=== PATIENT | female | born 1960 | race Caucasian/White ===

== ENCOUNTER 2016-07-24 12:40 | Inpatient (IN) | payer OTHER ==
--- NOTE | ~2016-07-24 | CN ---
Consultation Report [place] [id number] [place]. [address] NAME: MONICA CHAUHAN : 62 STATUS : ADM IN PAT#: [id number] AGE: 55 ADM/REG DATE : 07/24/16 MR#: [id number] REPORT SERV DATE: 07/26/16 DICTATED BY: Katlyn CAMP DATE: 07/26/16 REPORT STATUS : Draft TRANSCRIBED BY: MODL DATE: 07/26/16 DATE OF CONSULTATION: 07/25/2016 CHIEF COMPLAINT: Febrile urinary tract infection with history of stone disease. HISTORY OF PRESENT ILLNESS: Ms. Chauhan is a 55-year-old white female known to me with a history of recurrent stone disease. She had multiple procedures, some done here, some done when she lived in [place]. She presented to the emergency room on 07/24/2016 with fever, chills, right flank pain, and lower abdominal pain. A CT showed a large nonobstructing lower pole right renal pelvis stones with another moderate stone in the lower pole calyx with a small gas bubble in the right renal pelvis and upper pole. There was no evidence of obstruction, and the patient has been hemodynamically stable since admission. Her pain has largely resolved. I last saw her in April of this year to monitor her stone burden which was stable. PAST MEDICAL HISTORY: 1. Borderline hypertension. 2. Urolithiasis with multiple procedures. 3. History of sepsis due to obstructing stone. 4. COPD. 5. GERD. PAST SURGICAL HISTORY: 1. Remote right PCNL tube. 2. Previous ESWL. 3. 02/07/2015, cysto, stent placement. 4. 02/13/2015, right ESWL. 5. Appendectomy. 6. Hysterectomy. HOME MEDICATIONS: Prilosec 20 mg daily. ALLERGIES: NO KNOWN DRUG ALLERGIES. SOCIAL HISTORY: She is a [id number] smoker. Denies current alcohol use. FAMILY HISTORY: Negative for urologic disease. REVIEW OF SYSTEMS: Full 12-point review of systems negative except as noted above. PHYSICAL EXAMINATION: GENERAL: Obese 55-year-old white female, afebrile currently with normal vital signs. Alert and oriented x3. HEENT: Normocephalic, atraumatic. Consultation Report [id number] [place]. [address] NAME: MONICA CHAUHAN : 62 STATUS : ADM IN PAT#: [id number] AGE: 55 ADM/REG DATE : 07/24/16 MR#: [id number] REPORT SERV DATE: 07/26/16 DICTATED BY: Katlyn CMAP DATE: 07/26/16 REPORT STATUS : Draft TRANSCRIBED BY: JIMY DATE: 07/26/16 CHEST: Clear with some mild wheezing. ABDOMEN: Protuberant, nontender, nondistended. BACK: No CVA tenderness noted. EXTREMITIES: No peripheral edema noted. The patient is ambulatory. PERTINENT LABORATORY: Creatinine 1.17. White count 12,500. Urinalysis; inflammatory with culture pending. CT of the abdomen and pelvis was reviewed and as noted above. IMPRESSION: 1. Febrile urinary tract infection; probable pyelonephritis. 2. History of urolithiasis with nonobstructing right renal stones. 3. Right flank pain, resolved. 4. Other medical problems including chronic obstructive pulmonary disease. PLAN: 1. The gas in her collecting system is most likely due to the organism involved. I would not make much of that as she does not appear obstructed. 2. I do think that if indeed this is a problem on that side, the stones could be infected and ultimately she is going to need treatment of them. My first offer was percutaneous nephrolithotomy. She had a bad experience with [place] and is averse to that. Second choice would be inferior, which would include a right ESWL with or without a stent, although she has failed ESWL in the past as well. The next option would be observation to see if she has recurrence of this whenever bug is found during this admission and I think that as probably the least hernandez decision, but we do not have to make that decision at this time and as there was no need for urgent intervention, I will follow with her during this hospitalization. CINDA/JIMY Katlyn Camp M.D. / [id number] CC: Joaquin Sutherland MD
--- NOTE | ~2016-07-24 | HP ---
History And Physical [place] [address] [facility] [place]. [address] NAME: MONICA CRAWFORD : 62 STATUS : ADM IN [facility]#: [id number] AGE: 55 ADM/REG DATE : 07/24/16 MR#: [id number] REPORT SERV DATE: 07/24/16 DICTATED BY: LELO KIDD DATE: 07/24/16 REPORT STATUS : Draft TRANSCRIBED BY: MODL DATE: 07/24/16 DATE OF ADMISSION: 07/24/2016 HISTORY OF PRESENT ILLNESS: The patient is a 55-year-old female who presented to [facility] because of sensation of fever, chills, complaining of right-sided flank pain, pain in the lower abdomen, sensation of itching, nausea this morning, tried to vomit, but could not vomit anything. She denies dysuria. No chest pain. No shortness of breath. She has mild cough. She is a smoker. No headaches. Also, complaining of weakness. All 14-point review of systems done and negative except what is stated in the history of present illness. PAST MEDICAL HISTORY: Known for borderline hypertension; history of multiple kidney stones with obstructive uropathy and multiple surgeries; history of severe sepsis in 2015, for E coli; history of allergic reaction of unknown cause possibly secondary to ibuprofen according to discharge summary of Dr. Lou in 2014; history of COPD and hypoxemia; history of acute kidney injury; history of cystoscopy with right retrograde pyelography, stone manipulation, placement of right double-J stent by Dr. Velasco; history of recurrent nephrolithiasis; multiple cystoscopies for kidney stones; history of tube placement in the past; other surgical problems include x3; abdominal hysterectomy; and appendectomy. ALLERGIES: THERE ARE NO KNOWN DRUG ALLERGIES, BUT THERE IS A QUESTIONABLE REACTION TO IBUPROFEN. SOCIAL HISTORY: She smokes one pack per day. No alcohol. No recreational drug use. 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 is at the bedside. HOME MEDICATIONS: She only takes stomach medicine, omeprazole 20 mg twice a day. FAMILY HISTORY: Mother healthy, is living. Father from colon cancer. The patient denies any history of strokes. No heart attacks. No diabetes. No thyroid problems. PHYSICAL EXAMINATION: GENERAL: Overweight female not in acute distress, weak, complaining of right flank pain. VITAL SIGNS: Blood pressure 122/69, temperature 98.3, heart rate 100, and then improved to 93, respiratory rate 18, and oxygen saturation 95 on room air. HEENT: Head atraumatic, normocephalic. Conjunctivae clear. Pupils are equal and reactive to light and accommodation. Extraocular muscles are intact. NECK: Supple. Trachea is midline. No supraclavicular or cervical lymphadenopathy. LUNGS: Diminished breath sounds bilaterally with mild wheezing. Normal respiratory effort. CARDIOVASCULAR: Regular rate and rhythm. Point of maximal impulse not displaced. ABDOMEN: Soft. There is tenderness to palpation in the right flank anteriorly and posteriorly. There is no tenderness in other abdominal quadrants. There is no guarding. No rebound. Completely benign abdominal examination. History And Physical [address] [address] NAME: MONICA CRAWFORD : 62 STATUS : ADM IN [facility]#: [id number] AGE: 55 ADM/REG DATE : 07/24/16 MR#: [id number] REPORT SERV DATE: 07/24/16 DICTATED BY: LELO KIDD DATE: 07/24/16 REPORT STATUS : Draft TRANSCRIBED BY: JIMY DATE: 07/24/16 EXTREMITIES: No clubbing, cyanosis, or edema. SKIN: Normal color, slightly decreased turgor. PSYCHIATRIC: Normal mood and affect. NEUROLOGIC: Awake, alert, and oriented in time, place, and person. Muscle strength is 5/5 bilaterally on upper and lower extremities. LABORATORY RESULTS: Sodium 140, potassium 4, chloride 106, carbon dioxide 24, BUN 10, creatinine 1.17, blood sugar 110. ALT 19, AST 19, lipase 71. White count 12.5, hemoglobin 15, hematocrit 42.8, and a platelet count is 241. Urinalysis showed hazy urine with moderate leukocyte esterase, positive nitrites, 5 red blood cells, and [address] of the abdomen and pelvis without contrast done in the emergency room today showed large nonobstructing lower right renal pelvis calculus and moderate size nonobstructing calculus, lower pole calyx, right kidney, no right ureter calculus, small bubble of gas in the right renal pelvis and upper pole calyx. This may represent sequela of recent instrumentation versus possibility of gas-forming infection correlation with clinical history needed. Infiltration of right perirenal fat planes may represent sequela of underlying infection such as pyelonephritis or may represent sequela of recently resolved obstruction. Cholelithiasis. No acute cholecystitis pattern, status post appendectomy, hysterectomy, small 11 mm left adrenal adenoma. Chest x-ray is ordered and currently pending. ASSESSMENT AND PLAN: This is a very pleasant 55-year-old female who presented with right- sided pyelonephritis and history of multiple kidney stones, history of pyelonephritis in the past, history of Escherichia coli urinary tract infection sepsis presented again with: 1. Right-sided pyelonephritis. 2. Kidney stones. 3. Right flank pain secondary to above. 4. History of chronic obstructive pulmonary disease with ongoing tobacco abuse. For her right-sided pyelonephritis, the patient reported that in April, she saw Dr. Velasco, her urologist, and at that time, she was okay, but she sees him every six months and I think this is another episode of pyelonephritis. We will start the patient on IV fluid hydration as well as we will start the patient on antibiotics. I checked her last urinary culture on 05/03/2016. She had urine culture which showed E coli ESBL which was resistant to quinolones, but sensitive to meropenem. We will start the patient on meropenem waiting until urinary cultures come back which were taken at this time. In the same time, we will ask pharmacy to help with the dosing. The patient's creatinine 1.17 at her baseline. In February 2015, it was the same number 1.17 and her GFR is 61. She probably has stage 2 chronic kidney disease as well. We will continue IV fluid hydration. We will give reasonable pain control and nausea control. For her COPD, we will check her chest x-ray and give her albuterol, ipratropium breathing treatment. The patient was told that she needs to stop smoking and also she was told to avoid nonsteroidal anti-inflammatories. My colleague, Dr. Dennison, will see this patient starting tomorrow morning as well as Dr. eVlasco was consulted. Noble in the emergency room spoke with Dr. Velasco's partner Dr. Baldwin and he said that they will see her in consultation. History And Physical [address] [place]. [address] NAME: MONICA CRAWFORDETTE : 62 STATUS : ADM IN PAT#: [id number] AGE: 55 ADM/REG DATE : 07/24/16 MR#: [id number] REPORT SERV DATE: 07/24/16 DICTATED BY: LELO KIDD DATE: 07/24/16 REPORT STATUS : Draft TRANSCRIBED BY: JIMY DATE: 07/24/16 We will also keep the patient n.p.o. after midnight in case if they will need to do any instrumentation on her. MG/MODL Lelo Kidd M.D. / [id number] CC: MD Katlyn Lira M.D.
--- NOTE | ~2016-07-24 | DS ---
Discharge Summary [facility] [address] [facility] [place]. [address] NAME: MONICA CRAWFORD : 62 STATUS : DIS IN PAT#: [id number] AGE: 55 ADM/REG DATE : 07/24/16 MR#: [id number] REPORT SERV DATE: 07/31/16 DICTATED BY: JEFF CROFT DATE: 07/30/16 REPORT STATUS : Draft TRANSCRIBED BY: MODL DATE: 07/30/16 ADMISSION DATE: 07/24/2016 DISCHARGE DATE: 07/30/2016 HISTORY OF PRESENT ILLNESS: The patient is a 55-year-old female with a history of hypertension who presented to the hospital with a complaint of flank pain and intermittent fevers and chills. For further details, please refer to H and P dictated by Dr. Beatty on 07/24/2016. HOSPITAL COURSE: Upon presenting to the hospital, the patient was diagnosed with pyelonephritis and admitted under Hospitalist Service. Preliminary workup included a CT abdomen and pelvis which noted a large nonobstructive lower right renal pelvis calculus. Given this finding, the patient was admitted on the Hospitalist Service. She was started on empiric antibiotic therapy and Urology was consulted. Per Urology's evaluation, given that was nonobstructing, there was no indication for urgent intervention, with the plan was for patient to follow up with Urology in the outpatient setting. Also, on presentation, the urine culture was obtained during her hospital course. Her urine culture came back positive for ESBL E. coli. The patient was placed on meropenem for antibiotic coverage. Her symptoms quickly resolved. However, given that her antibiotics was only sensitive to meropenem and resistant to other p.o. antibiotics, the patient was kept in-house for IV antibiotic therapy, given that for logistical reasons, home antibiotic therapy could not be set up for the patient. The patient has completed today a 7-day course of meropenem, and given a seven-day course of meropenem, she has remained hemodynamically stable with a complete resolution of her symptoms. Her, with normal kidney function, she is eagerly wanting to go home. Given completion of workup, the patient will be discharged to home to follow up with Urology. Plan has been discussed with the patient, who voices understanding and is agreeable with this plan. DISCHARGE DIAGNOSES: 1. Pyelonephritis. 2. Nephrolithiasis. 3. Chronic obstructive pulmonary disease. 4. Hypokalemia. 5. Acute kidney injury. 6. Obesity. 7. Hypertension. DISCHARGE MEDICATIONS: 1. Amlodipine 5 mg p.o. daily. 2. Omeprazole 20 mg p.o. daily. IMAGING: CT abdomen and pelvis without contrast. Impression: 1. Large nonobstructing lower right renal pelvis calculus and moderate-sized nonobstructing calculus, lower pole calyx right kidney, no right ureter calculus. 2. Small bubble of gas in the right renal pelvis and upper pole calyx. This may represent sequela of recent instrumentation versus possibility of gas-forming infection, Discharge Summary [address] [address] NAME: MONICA CRAWFORD : 62 STATUS : DIS IN [facility]#: [id number] AGE: 55 ADM/REG DATE : 07/24/16 MR#: [id number] REPORT SERV DATE: 07/31/16 DICTATED BY: JEFF CROFT DATE: 07/30/16 REPORT STATUS : Draft TRANSCRIBED BY: JIMY DATE: 07/30/16 correlate with clinical history needed. 3. Infiltration of right perirenal fat planes, may represent sequela of underlying infection such as pyelonephritis or may represent sequela of recently resolved obstruction. 4. Cholelithiasis. No acute cholecystitis. 5. Status post appendectomy and hysterectomy. 6. Small 11 mm left adrenal adenoma. DISPOSITION: The patient will be discharged to home. ACTIVITY: As tolerated. DIET: Low-salt diet. Greater than 30 minutes was spent providing counseling, dictation of note, medication reconciliation, and coordinating discharge. DICTATED BY: MD ARIEL Falk/JIMY Jeff Croft MD / [id number] CC: Jeff Croft MD
[2016-07-24 10:23] LABS: ASCORBIC ACID (UR NOT ORDER) NEG (NEG); BILIRUBIN, URINE NEGATIVE (NEG); ER URINALYSIS TAT 0 Hrs 00 Mins; KETONE, URINE NEGATIVE (NEG); LEUKOCYTE ESTERASE(NOT OR MOD (NEG); WBC (NOT ORDERED) (RFLEX) 49 (0-5)
[2016-07-24 10:23] LABS: BASOPHILS 0.1 %; BASOPHILS ABSOLUTE 0.01 10/3/uL (0.0-0.16); EOSINOPHILS 0 %; HEMATOCRIT 42.8 % (36.0-48.0); IMMATURE GRANULOCYTES 0.2 %; IMMATURE GRANULOCYTES ABSOLUTE 0.03 10/3/uL (0.0-0.11); LYMPHOCYTES 10.2 %; LYMPHOCYTES ABSOLUTE 1.27 10/3/uL (0.67-4.30); MANUAL DIFF NO %; MEAN CORPUSCULAR HEMOGLOB 29.9 pg (26.0-34.0); MEAN CORPUSCULAR VOLUME 85.3 fL (80-100); MEAN PLATELET VOLUME 10.6 fL (9.2-13.0); MONOCYTES ABSOLUTE 0.88 10/3/uL (0.21-1.20); NEUTROPHILS 82.5 %; NEUTROPHILS ABSOLUTE 10.31 10/3/uL (2.02-8.40); PLATELET COUNT 241 10/3/uL (150-400); RBC DISTRIBUTION WIDTH 14.2 % (12.0-16.0); RED CELL COUNT 5.02 10/6/uL (4.0-5.6); WHITE BLOOD CELLS 12.5 10/3/uL (4.5-10.5)
[2016-07-24 10:24] LABS: NITRITE (URINE) POS (NEG)
[2016-07-24 10:38] LABS: A/G RATIO 0.8 (0.7-1.9); ALBUMIN 3.5 G/DL (3.5-5.0); ALKALINE PHOSPHATASE 89 U/L (45-117); BUN (BLOOD UREA NITROGEN) 10 MG/DL (6-23); CALCIUM, SERUM 9.3 MG/DL (8.5-10.4); CHLORIDE, SERUM 106 MMOL/L (96-112); CO2 (CARBON DIOXIDE) 24 MMOL/L (24-34); CREATININE 1.17 MG/DL (0.55-1.02); GFR AFRICAN AMERICAN 61 ML/MIN (>=60); GFR NON AFRICAN AMERICAN 53 ML/MIN (>=60); GLOBULIN 4.2 G/DL (2.5-4.1); GLUCOSE, SERUM 110 MG/DL (60-99); SGOT(AST) 19 U/L (5-40); SGPT(ALT) 19 U/L (5-65); SODIUM, SERUM 140 MMOL/L (135-148); TOTAL BILIRUBIN 0.5 MG/DL (0-1.2); TOTAL PROTEIN 7.7 G/DL (6.0-8.5)
[~2016-07-24 12:40] MED LIST: BEN25 PO; DENIES HOME MEDS; HABIT21 TOP; P10 PO; PRILOSEC OTC20 MG PO; PROAIR HFA; SEPTRA1 TAB PO
[2016-07-24 17:55] LABS: INTERNATIONAL NORMAL RATI 1.2 UNITS (-); PARTIAL THROMBO TIME 41.5 SEC (22.5-37.2); PROTIME (NOT ORD) 14.8 SEC (12.0-14.5)
[2016-07-25 05:57] LABS: BASOPHILS 0 %; EOSINOPHILS 0.1 %; EOSINOPHILS ABSOLUTE 0.01 10/3/uL (0.0-0.53); HEMATOCRIT 40.3 % (36.0-48.0); HEMOGLOBIN 13.6 g/dL (12.0-16.0); IMMATURE GRANULOCYTES 0.1 %; IMMATURE GRANULOCYTES ABSOLUTE 0.01 10/3/uL (0.0-0.11); LYMPHOCYTES 11.7 %; MANUAL DIFF NO %; MEAN CORPUS HGB CONC 33.7 g/dL (32.0-36.0); MEAN CORPUSCULAR HEMOGLOB 29.8 pg (26.0-34.0); MEAN CORPUSCULAR VOLUME 88.2 fL (80-100); MEAN PLATELET VOLUME 10.7 fL (9.2-13.0); MONOCYTES 4.3 %; MONOCYTES ABSOLUTE 0.33 10/3/uL (0.21-1.20); NEUTROPHILS 83.8 %; NEUTROPHILS ABSOLUTE 6.47 10/3/uL (2.02-8.40); PLATELET COUNT 219 10/3/uL (150-400); RBC DISTRIBUTION WIDTH 14.4 % (12.0-16.0); RED CELL COUNT 4.57 10/6/uL (4.0-5.6); WHITE BLOOD CELLS 7.7 10/3/uL (4.5-10.5)
[2016-07-25 06:13] LABS: CALCIUM, SERUM 8.7 MG/DL (8.5-10.4); CHLORIDE, SERUM 109 MMOL/L (96-112); CO2 (CARBON DIOXIDE) 25 MMOL/L (24-34); CREATININE 1.23 MG/DL (0.55-1.02); GFR AFRICAN AMERICAN 58 ML/MIN (>=60); GFR NON AFRICAN AMERICAN 50 ML/MIN (>=60); GLUCOSE, SERUM 107 MG/DL (60-99); POTASSIUM, SERUM 3.9 MMOL/L (3.5-5.3); SODIUM, SERUM 140 MMOL/L (135-148)
[2016-07-25 06:14] LABS: BUN (BLOOD UREA NITROGEN) 15 MG/DL (6-23)
[2016-07-27 05:27] LABS: BASOPHILS 0.3 %; BASOPHILS ABSOLUTE 0.01 10/3/uL (0.0-0.16); EOSINOPHILS 1.9 %; EOSINOPHILS ABSOLUTE 0.07 10/3/uL (0.0-0.53); HEMATOCRIT 36.7 % (36.0-48.0); HEMOGLOBIN 12.4 g/dL (12.0-16.0); LYMPHOCYTES 31.9 %; LYMPHOCYTES ABSOLUTE 1.19 10/3/uL (0.67-4.30); MEAN CORPUS HGB CONC 33.8 g/dL (32.0-36.0); MEAN CORPUSCULAR VOLUME 85.7 fL (80-100); MEAN PLATELET VOLUME 10.2 fL (9.2-13.0); MONOCYTES 11.3 %; MONOCYTES ABSOLUTE 0.42 10/3/uL (0.21-1.20); NEUTROPHILS 54.6 %; NEUTROPHILS ABSOLUTE 2.04 10/3/uL (2.02-8.40); PLATELET COUNT 208 10/3/uL (150-400); RBC DISTRIBUTION WIDTH 14.2 % (12.0-16.0); RED CELL COUNT 4.28 10/6/uL (4.0-5.6)
[2016-07-27 05:28] LABS: MANUAL DIFF NO %; WHITE BLOOD CELLS 3.7 10/3/uL (4.5-10.5)
[2016-07-27 05:54] LABS: CALCIUM, SERUM 8.6 MG/DL (8.5-10.4); CHLORIDE, SERUM 108 MMOL/L (96-112); CO2 (CARBON DIOXIDE) 25 MMOL/L (24-34); GLUCOSE, SERUM 100 MG/DL (60-99); POTASSIUM, SERUM 3.4 MMOL/L (3.5-5.3); SGOT(AST) 18 U/L (5-40); SGPT(ALT) 18 U/L (5-65); SODIUM, SERUM 140 MMOL/L (135-148); TOTAL BILIRUBIN 0.2 MG/DL (0-1.2); TOTAL PROTEIN 6.4 G/DL (6.0-8.5)
[2016-07-27 05:56] LABS: A/G RATIO 0.7 (0.7-1.9); ALBUMIN 2.6 G/DL (3.5-5.0); ALKALINE PHOSPHATASE 58 U/L (45-117); BUN (BLOOD UREA NITROGEN) 9 MG/DL (6-23); CREATININE 0.73 MG/DL (0.55-1.02); GFR AFRICAN AMERICAN 108 ML/MIN (>=60); GFR NON AFRICAN AMERICAN 93 ML/MIN (>=60); GLOBULIN 3.8 G/DL (2.5-4.1)
[2016-07-28 06:25] LABS: HEMATOCRIT 37.1 % (36.0-48.0); HEMOGLOBIN 12.6 g/dL (12.0-16.0); MEAN CORPUSCULAR VOLUME 85.5 fL (80-100); MEAN PLATELET VOLUME 10.5 fL (9.2-13.0); PLATELET COUNT 251 10/3/uL (150-400); RBC DISTRIBUTION WIDTH 13.9 % (12.0-16.0); RED CELL COUNT 4.34 10/6/uL (4.0-5.6); WHITE BLOOD CELLS 3.5 10/3/uL (4.5-10.5)
[2016-07-28 06:26] LABS: MANUAL DIFF YES %
[2016-07-28 06:44] LABS: A/G RATIO 0.7 (0.7-1.9); ALBUMIN 2.6 G/DL (3.5-5.0); ALKALINE PHOSPHATASE 60 U/L (45-117); BUN (BLOOD UREA NITROGEN) 11 MG/DL (6-23); CALCIUM, SERUM 8.9 MG/DL (8.5-10.4); CHLORIDE, SERUM 109 MMOL/L (96-112); CO2 (CARBON DIOXIDE) 23 MMOL/L (24-34); CREATININE 0.72 MG/DL (0.55-1.02); GFR AFRICAN AMERICAN 110 ML/MIN (>=60); GFR NON AFRICAN AMERICAN 95 ML/MIN (>=60); GLOBULIN 3.8 G/DL (2.5-4.1); GLUCOSE, SERUM 104 MG/DL (60-99); POTASSIUM, SERUM 3.5 MMOL/L (3.5-5.3); SGOT(AST) 19 U/L (5-40); SGPT(ALT) 16 U/L (5-65); SODIUM, SERUM 142 MMOL/L (135-148); TOTAL BILIRUBIN 0.2 MG/DL (0-1.2); TOTAL PROTEIN 6.4 G/DL (6.0-8.5)
[2016-07-28 06:55] LABS: BAND NEUTROPHILS 4 %; IMMATURE GRANS ABSOLUTE (CALC) 0.32 10/3/uL (0.0-0.11); LYMPHOCYTES 30 %; LYMPHOCYTES ABSOLUTE (CALC) 1.05 10/3/uL (0.67-4.30); METAMYELOCYTES 9 %; MONOCYTES 4 %; MONOCYTES ABSOLUTE (CALC) 0.14 10/3/uL (0.21-1.20); PLATELET ESTIMATE ADQ (ADEQUATE); RBC MORPHOLOGY NORM (NORMAL); SEGMENTED NEUTROPHIL (0) 53 %; TOTAL NUCLEATED CELLS 100
[2016-07-29 06:04] LABS: BASOPHILS 0.3 %; BASOPHILS ABSOLUTE 0.01 10/3/uL (0.0-0.16); EOSINOPHILS ABSOLUTE 0.08 10/3/uL (0.0-0.53); HEMOGLOBIN 12.7 g/dL (12.0-16.0); IMMATURE GRANULOCYTES 0.3 %; IMMATURE GRANULOCYTES ABSOLUTE 0.01 10/3/uL (0.0-0.11); LYMPHOCYTES 45.8 %; LYMPHOCYTES ABSOLUTE 1.79 10/3/uL (0.67-4.30); MEAN CORPUS HGB CONC 33.4 g/dL (32.0-36.0); MEAN CORPUSCULAR HEMOGLOB 28.8 pg (26.0-34.0); MEAN CORPUSCULAR VOLUME 86.2 fL (80-100); MEAN PLATELET VOLUME 10.3 fL (9.2-13.0); MONOCYTES 8.4 %; MONOCYTES ABSOLUTE 0.33 10/3/uL (0.21-1.20); NEUTROPHILS 43.2 %; NEUTROPHILS ABSOLUTE 1.69 10/3/uL (2.02-8.40); PLATELET COUNT 260 10/3/uL (150-400); RBC DISTRIBUTION WIDTH 13.8 % (12.0-16.0); RED CELL COUNT 4.41 10/6/uL (4.0-5.6); WHITE BLOOD CELLS 3.9 10/3/uL (4.5-10.5)
[2016-07-29 06:06] LABS: MANUAL DIFF NO %
[2016-07-29 06:26] LABS: A/G RATIO 0.7 (0.7-1.9); ALBUMIN 2.7 G/DL (3.5-5.0); BUN (BLOOD UREA NITROGEN) 12 MG/DL (6-23); CHLORIDE, SERUM 109 MMOL/L (96-112); CO2 (CARBON DIOXIDE) 25 MMOL/L (24-34); CREATININE 0.68 MG/DL (0.55-1.02); GFR AFRICAN AMERICAN 115 ML/MIN (>=60); GFR NON AFRICAN AMERICAN 99 ML/MIN (>=60); GLOBULIN 4.1 G/DL (2.5-4.1); GLUCOSE, SERUM 96 MG/DL (60-99); POTASSIUM, SERUM 3.7 MMOL/L (3.5-5.3); SGOT(AST) 20 U/L (5-40); SGPT(ALT) 21 U/L (5-65); SODIUM, SERUM 141 MMOL/L (135-148); TOTAL BILIRUBIN 0.2 MG/DL (0-1.2); TOTAL PROTEIN 6.8 G/DL (6.0-8.5)
[2016-07-29 06:27] LABS: ALKALINE PHOSPHATASE 73 U/L (45-117)
[2016-07-30 04:14] LABS: BASOPHILS 0.9 %; BASOPHILS ABSOLUTE 0.04 10/3/uL (0.0-0.16); EOSINOPHILS 2.4 %; EOSINOPHILS ABSOLUTE 0.11 10/3/uL (0.0-0.53); HEMATOCRIT 37.3 % (36.0-48.0); HEMOGLOBIN 12.6 g/dL (12.0-16.0); LYMPHOCYTES 46.4 %; LYMPHOCYTES ABSOLUTE 2.11 10/3/uL (0.67-4.30); MEAN CORPUS HGB CONC 33.8 g/dL (32.0-36.0); MEAN CORPUSCULAR HEMOGLOB 29.4 pg (26.0-34.0); MEAN CORPUSCULAR VOLUME 87.1 fL (80-100); MEAN PLATELET VOLUME 10.1 fL (9.2-13.0); MONOCYTES 7.3 %; MONOCYTES ABSOLUTE 0.33 10/3/uL (0.21-1.20); NEUTROPHILS ABSOLUTE 1.96 10/3/uL (2.02-8.40); PLATELET COUNT 273 10/3/uL (150-400); RBC DISTRIBUTION WIDTH 13.7 % (12.0-16.0); RED CELL COUNT 4.28 10/6/uL (4.0-5.6); WHITE BLOOD CELLS 4.6 10/3/uL (4.5-10.5)
[2016-07-30 04:19] LABS: MANUAL DIFF NO %
[2016-07-30 04:31] LABS: A/G RATIO 0.7 (0.7-1.9); ALBUMIN 2.6 G/DL (3.5-5.0); CALCIUM, SERUM 8.6 MG/DL (8.5-10.4); CHLORIDE, SERUM 111 MMOL/L (96-112); CO2 (CARBON DIOXIDE) 24 MMOL/L (24-34); CREATININE 0.67 MG/DL (0.55-1.02); GFR AFRICAN AMERICAN 115 ML/MIN (>=60); GFR NON AFRICAN AMERICAN 100 ML/MIN (>=60); GLOBULIN 3.9 G/DL (2.5-4.1); POTASSIUM, SERUM 3.5 MMOL/L (3.5-5.3); SGOT(AST) 18 U/L (5-40); SGPT(ALT) 19 U/L (5-65); SODIUM, SERUM 143 MMOL/L (135-148); TOTAL BILIRUBIN 0.2 MG/DL (0-1.2); TOTAL PROTEIN 6.5 G/DL (6.0-8.5)
[2016-07-30 04:32] LABS: ALKALINE PHOSPHATASE 88 U/L (45-117); BUN (BLOOD UREA NITROGEN) 16 MG/DL (6-23); GLUCOSE, SERUM 131 MG/DL (60-99)
[2016-07-30] MEDS ORDERED: NORV5 PO (11:35)
== END 2016-07-30 12:29 | disposition home or self-care (01) | DRG 690 ==
LOC: ER 12:40 → 5SO 14:06
PROVIDERS: Hospitalist; Internal Medicine; Nurse Practitioner
DX: N12 Tubulo-interstitial nephritis, not specified as acute or chronic (principal); N17.9 Acute kidney failure, unspecified; J44.9 Chronic obstructive pulmonary disease, unspecified; N18.2 Chronic kidney disease, stage 2 (mild); N20.0 Calculus of kidney; B96.20 Unspecified Escherichia coli [E. coli] as the cause of diseases classified elsewhere; Z16.39 Resistance to other specified antimicrobial drug; K80.20 Calculus of gallbladder without cholecystitis without obstruction; E87.6 Hypokalemia; E66.9 Obesity, unspecified; Z68.32 Body mass index [BMI] 32.0-32.9, adult; Z87.442 Personal history of urinary calculi; F17.210 Nicotine dependence, cigarettes, uncomplicated
CPT/HCPCS: 71010; 74000; 74176; 80048; 80053; 81001; 83690; 83735; 83880; 84132; 84145; 85025; 85610; 85730; 87040; 87077; 87086; 87186; 93971; 94640; 96374; 96375; 99285; A9270-GY; J1170; J2185; J2405

== ENCOUNTER 2016-08-15 11:10 | Inpatient (IN) | payer OTHER ==
--- NOTE | ~2016-08-15 | OP ---
Record Of Operation [facility] [address] [place]. [address] NAME: MONICA CHAUHAN : 62 STATUS : ADM IN PAT#: [id number] AGE: 55 ADM/REG DATE : 08/15/16 MR#: [id number] REPORT SERV DATE: 08/16/16 DICTATED BY: Katlyn ACMP DATE: 08/16/16 REPORT STATUS : Draft TRANSCRIBED BY: MODL DATE: 08/16/16 DATE OF PROCEDURE: 08/16/2016 PREOPERATIVE DIAGNOSIS: Symptomatic right renal pelvic stones. POSTOPERATIVE DIAGNOSIS: Symptomatic right renal pelvic stones. PROCEDURES: 1. Right percutaneous nephrolithotomy (greater than 2 cm stone volume). 2. Placement of double-J stent. ANESTHESIA: General. COMPLICATIONS: None. DRAINS: 1. 18-Senegalese Nuñez catheter. 2. 20-Senegalese Councill nephrostomy tube. 3. 7-Senegalese x 26 cm Contour double-J stent. BRIEF HISTORY: Ms. Chauhan is a 55-year-old white female with recurrent stone disease who has had recurrent infections with the same organism on her and felt to be due to an infected stone in her right kidney. We decided to proceed with percutaneous removal. The risks of bleeding, infection, anesthesia, injury to adjacent organs, need for retreatment, need for possible future procedures such as ureteroscopy or lithotripsy were all discussed. There were no unanswered questions. DESCRIPTION OF PROCEDURE: Under excellent general anesthesia, the patient was placed prone on the operative table. The flank was prepped and draped in a standard fashion. Dr. Richardson came in to the room and placed a ureteral access wires to the level of the bladder and then the tract was dilated to the stone. The offset lens nephroscope was then inserted and a fairly friable stone was noted in the renal pelvis. It was not particularly radiopaque but all visible stone was removed. There was an additional 3 or 4 mm stone in the lower pole calyx which had an additional access site but I could never get to this stone. I attempted with a flexible cystoscope and we also tried to push it into the collecting system from below but were unsuccessful. Dr. Richardson said the parenchyma was quite thin in that area, probably from her previous access site. We were reluctant to give her a second access. It was my feeling that stone to be treated with ESWL in the future. I then placed a 7-Senegalese x 26 cm Contour double-J stent from above which coiled nicely in the renal pelvis and bladder and then a 20-Senegalese nephrostomy tube was placed into the renal pelvis. A 2 mL of sterile water placed in the balloon and then a nephrostogram was used to confirm good position. The Councill was affixed to the skin with a silk suture and a sterile dressing was applied. Ms. Chauhan will be taken to the recovery room and then back to the floor. We plan to get a nephrostogram in the morning. Remove her nephrostomy and Nuñez as appropriate. Proceed with consideration of further treatment if her remaining small stone at some point in the future. Record Of Operation [address] [place]. [address] NAME: MONICA CHAUHAN : 62 STATUS : ADM IN PAT#: [id number] AGE: 55 ADM/REG DATE : 08/15/16 MR#: [id number] REPORT SERV DATE: 08/16/16 DICTATED BY: Katlyn CAMP DATE: 08/16/16 REPORT STATUS : Draft TRANSCRIBED BY: JIMY DATE: 08/16/16 CINDA/JIMY Katlyn Camp M.D. / [id number] CC: Katlyn Camp M.D.
--- NOTE | ~2016-08-15 | HP ---
History And Physical [place] [id number] [facility] [place]. [address] NAME: MONICA CHAUHAN : 62 STATUS : ADM IN PAT#: [id number] AGE: 55 ADM/REG DATE : 08/15/16 MR#: [id number] REPORT SERV DATE: 08/16/16 DICTATED BY: Katlyn VELASCO DATE: 08/16/16 REPORT STATUS : Draft TRANSCRIBED BY: MODL DATE: 08/16/16 DATE OF ADMISSION: 08/15/2016 CHIEF COMPLAINT: Symptomatic right renal stones. HISTORY OF PRESENT ILLNESS: Ms. Chauhan is a 55-year-old white female, known to me with history of recurrent stone disease. She was admitted recently with a febrile urinary tract infection without obstruction. This was a similar organism to what she presented with an infection earlier this year and it is our feeling that the stone in her right kidney was infected. There was some gas had a previous bad experience in [place]. She obviously nephrostomy tube was placed today . PAST MEDICAL HISTORY: 1. Urolithiasis. 2. Urosepsis with history of obstruction. 3. Hypertension. 4. COPD. 5. GERD. 6. Rheumatic fever. 7. Closed head injury. PAST SURGICAL HISTORY: Hysterectomy. Appendectomy. x3. Multiple urologic procedures including cystoscopy, ESWL, and percutaneous stone removal. Tonsillectomy. HOME MEDICATIONS: Prilosec 20 daily. Amlodipine 5 mg at bedtime. ALLERGIES: NO KNOWN DRUG ALLERGIES. SOCIAL HISTORY: The patient continues to smoke a pack a day. Denies alcohol use. FAMILY HISTORY: Negative for urologic disease. REVIEW OF SYSTEMS: Full 12-point review of systems negative except as noted above. PHYSICAL EXAMINATION: GENERAL: Obese 55-year-old white female and afebrile with normal vital signs. Alert and oriented x3. HEENT: Normocephalic, atraumatic. CHEST: Clear. HEART: Regular rate and rhythm. ABDOMEN: Protuberant, nontender, and nondistended. She has a right nephrostomy tube which is draining. EXTREMITIES: No peripheral edema noted. PERTINENT LABORATORY: Creatinine 0.87. Hemoglobin 13.3. History And Physical [address] [address] NAME: MONICA CHAUHAN : 62 STATUS : ADM IN PAT#: [id number] AGE: 55 ADM/REG DATE : 08/15/16 MR#: [id number] REPORT SERV DATE: 08/16/16 DICTATED BY: Katlyn VELASCO DATE: 08/16/16 REPORT STATUS : Draft TRANSCRIBED BY: JIMY DATE: 08/16/16 IMPRESSION: Right renal pelvic stone with some recurrent UTIs. PLAN: 1. Nephrostomy tube was placed today. 2. We will plan right percutaneous nephrolithotomy on 08/16/2016. CINDA/JIMY Katlyn Velasco M.D. / [id number] CC: Katlyn Velasco M.D.
[~2016-08-15 11:10] MED LIST changes: +NORV5 PO
[2016-08-15 12:09] LABS: HEMATOCRIT 39.9 % (36.0-48.0); HEMOGLOBIN 13.3 g/dL (12.0-16.0); PLATELET COUNT 292 10/3/uL (150-400)
[2016-08-15 12:21] LABS: PROTIME (NOT ORD) 13.4 SEC (12.0-14.5)
[2016-08-15 12:25] LABS: BUN (BLOOD UREA NITROGEN) 11 MG/DL (6-23); CALCIUM, SERUM 9.3 MG/DL (8.5-10.4); CHLORIDE, SERUM 110 MMOL/L (96-112); CO2 (CARBON DIOXIDE) 26 MMOL/L (24-34); CREATININE 0.87 MG/DL (0.55-1.02); GFR AFRICAN AMERICAN 88 ML/MIN (>=60); GFR NON AFRICAN AMERICAN 76 ML/MIN (>=60); GLUCOSE, SERUM 86 MG/DL (60-99); POTASSIUM, SERUM 3.8 MMOL/L (3.5-5.3); SODIUM, SERUM 143 MMOL/L (135-148)
[2016-08-16 06:07] LABS: BASOPHILS 0 %; EOSINOPHILS 0 %; HEMATOCRIT 41.5 % (36.0-48.0); HEMOGLOBIN 13.7 g/dL (12.0-16.0); IMMATURE GRANULOCYTES 0.2 %; IMMATURE GRANULOCYTES ABSOLUTE 0.02 10/3/uL (0.0-0.11); LYMPHOCYTES 5.9 %; LYMPHOCYTES ABSOLUTE 0.72 10/3/uL (0.67-4.30); MEAN CORPUSCULAR HEMOGLOB 28.7 pg (26.0-34.0); MEAN PLATELET VOLUME 11.1 fL (9.2-13.0); MONOCYTES 4.6 %; MONOCYTES ABSOLUTE 0.56 10/3/uL (0.21-1.20); NEUTROPHILS 89.3 %; NEUTROPHILS ABSOLUTE 10.97 10/3/uL (2.02-8.40); PLATELET COUNT 322 10/3/uL (150-400); RBC DISTRIBUTION WIDTH 14.3 % (12.0-16.0); RED CELL COUNT 4.77 10/6/uL (4.0-5.6)
[2016-08-16 06:08] LABS: MANUAL DIFF NO %; WHITE BLOOD CELLS 12.3 10/3/uL (4.5-10.5)
[2016-08-16 06:15] LABS: BUN (BLOOD UREA NITROGEN) 17 MG/DL (6-23); CALCIUM, SERUM 9.2 MG/DL (8.5-10.4); CHLORIDE, SERUM 106 MMOL/L (96-112); CO2 (CARBON DIOXIDE) 25 MMOL/L (24-34); CREATININE 1.03 MG/DL (0.55-1.02); GFR AFRICAN AMERICAN 71 ML/MIN (>=60); GFR NON AFRICAN AMERICAN 62 ML/MIN (>=60); GLUCOSE, SERUM 134 MG/DL (60-99); POTASSIUM, SERUM 4.7 MMOL/L (3.5-5.3); SODIUM, SERUM 138 MMOL/L (135-148)
[2016-08-17 06:35] LABS: BASOPHILS 0 %; EOSINOPHILS 0 %; HEMATOCRIT 38.3 % (36.0-48.0); HEMOGLOBIN 12.5 g/dL (12.0-16.0); IMMATURE GRANULOCYTES 0.1 %; IMMATURE GRANULOCYTES ABSOLUTE 0.01 10/3/uL (0.0-0.11); LYMPHOCYTES 12.9 %; LYMPHOCYTES ABSOLUTE 1.19 10/3/uL (0.67-4.30); MEAN CORPUS HGB CONC 32.6 g/dL (32.0-36.0); MEAN CORPUSCULAR HEMOGLOB 28.7 pg (26.0-34.0); MEAN CORPUSCULAR VOLUME 87.8 fL (80-100); MEAN PLATELET VOLUME 10.8 fL (9.2-13.0); MONOCYTES 10.4 %; MONOCYTES ABSOLUTE 0.96 10/3/uL (0.21-1.20); NEUTROPHILS 76.6 %; NEUTROPHILS ABSOLUTE 7.07 10/3/uL (2.02-8.40); PLATELET COUNT 279 10/3/uL (150-400); RBC DISTRIBUTION WIDTH 14.7 % (12.0-16.0); RED CELL COUNT 4.36 10/6/uL (4.0-5.6); WHITE BLOOD CELLS 9.2 10/3/uL (4.5-10.5)
[2016-08-17 06:36] LABS: MANUAL DIFF NO %
[2016-08-17 06:51] LABS: BUN (BLOOD UREA NITROGEN) 17 MG/DL (6-23); CALCIUM, SERUM 9.6 MG/DL (8.5-10.4); CHLORIDE, SERUM 105 MMOL/L (96-112); CO2 (CARBON DIOXIDE) 27 MMOL/L (24-34); GFR AFRICAN AMERICAN 84 ML/MIN (>=60); GFR NON AFRICAN AMERICAN 72 ML/MIN (>=60); POTASSIUM, SERUM 4.5 MMOL/L (3.5-5.3); SODIUM, SERUM 138 MMOL/L (135-148)
[2016-08-17 06:52] LABS: GLUCOSE, SERUM 103 MG/DL (60-99)
[2016-08-22 14:04] LABS: SOURCE OF STONE Right Kidney (()); STONE COMPOSITION TWO DNR (())
== END 2016-08-17 19:24 | disposition home or self-care (01) | DRG 660 ==
LOC: CSSUOP 11:10 → RADHOLD 11:18 → CSSUOP 14:30 → 4SO 14:40
PROC: 0T9330Z Drainage of Right Kidney Pelvis with Drainage Device, Percutaneous Approach (ICD-10-PCS; 2016-08-16)
PROC: 0T763DZ Dilation of Right Ureter with Intraluminal Device, Percutaneous Approach (ICD-10-PCS; 2016-08-16)
PROC: 0TC33ZZ Extirpation of Matter from Right Kidney Pelvis, Percutaneous Approach (ICD-10-PCS; principal; 2016-08-16 12:45)
PROC: 0TP570Z Removal of Drainage Device from Kidney, Via Natural or Artificial Opening (ICD-10-PCS; 2016-08-17)
DX: N20.0 Calculus of kidney (principal); N39.0 Urinary tract infection, site not specified; I10 Essential (primary) hypertension; K21.9 Gastro-esophageal reflux disease without esophagitis; Z79.899 Other long term (current) drug therapy; J44.9 Chronic obstructive pulmonary disease, unspecified; F17.210 Nicotine dependence, cigarettes, uncomplicated; Z87.442 Personal history of urinary calculi
CPT/HCPCS: 50389; 50431; 50433; 76001; 80048; 80170; 82365; 84703; 85014; 85018; 85025; 85049; 85610; 93005; 94640; 99152; A9270-GY; C1726; C1729; C1769; C1887; C1892; C1894; C2617; J0690; J1170; J1580; J2250; J2270; J2405; J2550; J2710; J2930; J3010; Q9967